=== PATIENT | female | born 1970 | race Hispanic/Latino ===

== ENCOUNTER 2021-06-26 09:38 | Observation (INO) | payer MEDICARE ==
[~2021-06-26] VITALS: Ht 154.9 cm; Wt 69.9 kg
[2021-06-26 09:39] VITALS: BP 112/79
[2021-06-26 10:29] LABS: BASOPHILS % (AUTO) 0.2 % (0.0-5.0); HEMATOCRIT 45.5 % (36-48); LYMPHOCYTES % (AUTO) 22.6 % (21.0-51.0); MEAN CORPUSCULAR HEMOGLOBIN 30.5 pg (27.0-33.0); MEAN CORPUSCULAR HGB CONC 35.2 g/dL (32.0-36.0); MEAN CORPUSCULAR VOLUME 86.8 fL (79-99); MONOCYTES % (AUTO) 4.3 % (3.0-13.0); NEUTROPHILS % (AUTO) 72.2 % (40.0-77.0); PLATELET COUNT (AUTO) 113 K/uL (130-400); RED BLOOD CELL COUNT(AUTO) 5.24 MIL/uL (4.00-5.50); RED CELL DISTRIBUTION WIDTH 12.7 % (11.0-15.5); WHITE BLOOD COUNT (AUTO) 5.8 K/uL (4.8-10.8)
[2021-06-26 10:30] LABS: CREATININE 0.9 mg/dL (0.5-1.5); POTASSIUM 3.3 mmol/L (3.5-5.1)
[2021-06-26 10:34] LABS: ALBUMIN 3.6 g/dL (3.5-5.0); BILIRUBIN,TOTAL 0.8 mg/dL (0.2-1.0); TOTAL PROTEIN, SERUM 7.2 g/dL (6.0-8.3)
[2021-06-26 10:40] LABS: INR 0.95 (0.85-1.15); PROTHROMBIN TIME 10.4 SEC (9.6-11.6)
[2021-06-26 11:32] LABS: CREATINE KINASE, TOTAL 127 U/L (21-232)
[2021-06-26 11:33] LABS: CRP QUANTITATIVE < 2.00 mg/L (0.00-9.0)
[2021-06-26 12:05] LABS: ABG BASE EXCESS 1.1 mmol/L (-2.0-3.0); ABG HCO3 23.7 mmol/L (21.0-28.0); ABG OXYGEN SATURATION 95.8 % (95.0-99.0); ABG PCO2 32 mmHg (32-45)
[2021-06-26] MEDS ORDERED: ENOXAPARIN SODIUM 40 MG/0.4 ML SYRINGE SQ SCH (13:30)
[2021-06-26] MEDS ORDERED: LACTULOSE 20 GM/30 ML UDCUP PO PRN (13:30)
[2021-06-26] MEDS ORDERED: DOXYCYCLINE 100MG+NS 250ML IV SCH (13:30)
[2021-06-26] MEDS ORDERED: ONDANSETRON 4MG INJ IV PRN (13:30)
[2021-06-26] MEDS ORDERED: CEFTRIAXONE 1G VIAL IVP SCH (13:30)
[2021-06-26] MEDS ORDERED: ERGOCALCIFEROL (VITAMIN D2) 50,000 UNIT CAPSULE PO SCH (13:30)
[2021-06-26] MEDS ORDERED: ACETAMINOPHEN 325 MG TAB PO PRN ×2 (13:30)
[2021-06-26] MEDS ORDERED: DEXAMETHASONE SOD PHOSPHATE 4 MG/ML 1ML VIAL IVP SCH (13:30)
[2021-06-26 13:55] LABS: HEMOGLOBIN A1C 5.2 % (4.0-6.0)
[2021-06-26] MEDS ORDERED: DOXYCYCLINE 100MG+NS 250ML 250 ML IV SCH (14:00)
[2021-06-26] MEDS ORDERED: GUAI120L62 PO (14:44)
[2021-06-26] MEDS ORDERED: ASCO500T10 PO (14:44)
[2021-06-26] MEDS ORDERED: ZINC220C6 PO (14:44)
[2021-06-26] MEDS ORDERED: FAMOTIDINE 20MG TAB PO SCH (21:00)
[2021-06-27] MEDS ORDERED: ZINC SULFATE 220 CAPSULE PO SCH (09:00)
[2021-06-27] MEDS ORDERED: ASCORBIC ACID 500 MG TAB PO SCH (09:00)
== END 2021-06-26 17:20 | disposition home or self-care (01) ==
LOC: EDH 09:38 → EDHIP 13:20
PROVIDERS: ADMIT Internal Medicine; ATTEND Internal Medicine
DX: U07.1 COVID-19 (principal); J12.82 Pneumonia due to coronavirus disease 2019; M06.9 Rheumatoid arthritis, unspecified; Z28.21 Immunization not carried out because of patient refusal
CPT/HCPCS: 36415; 36600; 71045; 80053; 82550; 82803; 83036; 83605; 83880; 84145; 84484; 85025; 85378; 85610; 85651; 85730; 86140; 87040 ×2; 87077; 87186; 87635; 87804 ×2; 87880; 93005; 96365; 96372; 96375; 99285; C9803; G0378 ×4; J0696 ×2; J1100; J1650; J3490 ×2